=== PATIENT | male | born 1960 | race Caucasian/White ===

== ENCOUNTER → 2024-06-03 09:31 | Outpatient (REF) | payer OTHER, SELFPAY | LOC: RAD 09:31 | PROVIDERS: ATTENDING PHYSICIAN Family Medicine | DX: R10.9 Unspecified abdominal pain (principal) | CPT/HCPCS: 74176 ==

== ENCOUNTER → 2024-06-07 06:44 | Outpatient (REF) | payer OTHER, SELFPAY | LOC: PAVMRI 06:44 | PROVIDERS: ATTENDING PHYSICIAN Family Medicine | DX: M54.50 Low back pain, unspecified (principal); M51.360 Other intervertebral disc degeneration, lumbar region with discogenic back pain only | CPT/HCPCS: 72148 ==

== ENCOUNTER → 2024-10-17 12:15 | Outpatient (REF) | payer OTHER, SELFPAY | LOC: DHSLP 12:15 | PROVIDERS: ATTENDING PHYSICIAN Family Medicine | DX: G47.33 Obstructive sleep apnea (adult) (pediatric) (principal) | CPT/HCPCS: 95800 ==

== ENCOUNTER → 2025-05-03 15:44 | Outpatient (REF) | payer OTHER, SELFPAY | LOC: PAVMRI 15:44 | PROVIDERS: ATTENDING PHYSICIAN Specialist; FAMILY PHYSICIAN Family Medicine | DX: M24.10 Other articular cartilage disorders, unspecified site (principal) | CPT/HCPCS: 73721 ==